=== PATIENT | male | born 2000 | race Two or more races ===

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

== ENCOUNTER 2023-12-20 12:14 | Emergency (ER) | payer SELFPAY ==
[~2023-12-20] VITALS: Ht 175.3 cm; Wt 124.6 kg
[2023-12-20 13:15] VITALS: BP 145/98; PULSE 94; RESP 16; TEMP 98.9; O2SAT 97
[2023-12-20] MEDS: FLUORESCEIN SOD OPTH TEST STRIP OP ONE (13:30)
[2023-12-20] MEDS ORDERED: TOB03OS OP (13:42)
== END 2023-12-20 14:21 | disposition home or self-care (01) ==
LOC: ER 12:14
DX: S05.02XA Injury of conjunctiva and corneal abrasion without foreign body, left eye, initial encounter (principal); Z88.0 Allergy status to penicillin; X58.XXXA Exposure to other specified factors, initial encounter; Y93.89 Activity, other specified; Y92.89 Other specified places as the place of occurrence of the external cause; Y99.8 Other external cause status